=== PATIENT | male | born 1960 | race Caucasian/White ===

== ENCOUNTER 2019-09-06 06:58 | Emergency (ER) | payer OTHER ==
[~2019-09-06] VITALS: Ht 166.4 cm; Wt 75.7 kg
[2019-09-06 07:04] VITALS: Ht 166.4 cm; Wt 75.7 kg
[2019-09-06 13:06] VITALS: BP 106/67
== END 2019-09-06 13:07 | disposition home or self-care (01) ==
LOC: ED 06:58
DX: S32.028A Other fracture of second lumbar vertebra, initial encounter for closed fracture (principal); S32.048A Other fracture of fourth lumbar vertebra, initial encounter for closed fracture; V43.52XA Car driver injured in collision with other type car in traffic accident, initial encounter; Y93.I9 Activity, other involving external motion; Y92.413 State road as the place of occurrence of the external cause; Y99.8 Other external cause status
CPT/HCPCS: J1885